=== PATIENT | female | born 1940 | race Caucasian/White ===

== ENCOUNTER 2016-08-15 12:28 | Inpatient (IN) | payer OTHER ==
[2016-08-15 12:34] VITALS: BMI 28.1
--- NOTE | 2016-08-15 12:50 | ED PDOC ---
Arrival/HPI - General Chief Complaint: Trauma Time Seen by Provider: 08/15/16 12:35 Historian: Patient - History of Present Illness Narrative History of Present Illness (Text): 08/15/16 12:47 76 year old female presents to the emergency department with left knee pain after mechanical trip and fall over uneven pavement around 12:15 today. She states she was unable to ambulate after the fall due to pain. Denies head trauma or LOC. Denies hip pain. Patient reports last tetanus 1 year ago. Time/Duration: Prior to Arrival Symptom Onset: Sudden Modifying Factors (Text): None Associated Symptoms (Text): None Past Medical History - Provider Review Nursing Documentation Reviewed: Yes - Infectious Disease Hx of Infectious Diseases: None - Tetanus Immunization Tetanus Immunization: Unknown - Reproductive Menopause: Yes - Cardiac Hx Cardiac Disorders: Yes Hx Hypertension: Yes (uncontrolled) Hx Pacemaker: No - Pulmonary Hx Respiratory Disorders: Yes Hx Pneumonia: Yes - Neurological Hx Neurological Disorder: No Hx Paralysis: No - HEENT Hx HEENT Disorder: (WEARS RX GLASSES) - Renal Hx Renal Disorder: No - Endocrine/Metabolic Hx Endocrine Disorders: Yes (GOITER) Hx Diabetes Mellitus Type 1: Yes - Hematological/Oncological Hx Blood Disorders: Yes (VIT D DEFICIENCY) Hx Anemia: Yes Hx Blood Transfusions: No Hx Blood Transfusion Reaction: No - Musculoskeletal/Rheumatological Hx Musculoskeletal Disorders: Yes Hx Arthritis: Yes (RHEUMATOID) Hx Falls: No Hx Unsteady Gait: Yes - Gastrointestinal Hx Gastrointestinal Disorders: Yes Hx Colitis: Yes Hx Diverticulitis: (diverticulosis) Hx Gastritis: Yes Hx Gastroesophageal Reflux: Yes - Genitourinary/Gynecological Hx Genitourinary Disorders: No (2 C SECTIONS) - Psychiatric Hx Depression: No Hx Emotional Abuse: No Hx Physical Abuse: No Hx Substance Use: No - Surgical History Hx Section: Yes (x2) - Anesthesia Hx Anesthesia: Yes Hx Anesthesia Reactions: No Hx Malignant Hyperthermia: No - Suicidal Assessment Feels Threatened In Home Enviroment: No Family/Social History - Physician Review Nursing Documentation Reviewed: Yes Family/Social History: Unknown Family HX Smoking Status: Never Smoked Hx Alcohol Use: No Hx Substance Use: No Hx Substance Use Treatment: No Allergies/Home Meds Allergies/Adverse Reactions: Allergies No Known Allergies Allergy (Verified 08/15/16 12:40) Home Medications: Home Meds Medication Instructions Recorded Confirmed Lisinopril/Hydrochlorothiazide 20 mg PO DAILY 05/15/13 08/15/16 [Lisinopril and Hydrochlorothiazide 25 mg-20 M] Cholecalciferol (Vitamin D3) 50,000 unit PO MON 08/15/16 08/15/16 [Vitamin D3] Folic Acid 1 mg PO DAILY 08/15/16 08/15/16 metFORMIN [glucOPHAGE] 500 mg PO BID 08/15/16 08/15/16 Review of Systems - Physician Review All systems were reviewed & negative as marked: Yes - Review of Systems Respiratory: absent: SOB Cardiovascular: absent: Chest Pain Musculoskeletal: Other (Left knee pain. No hip pain.) Neurological: absent: Headache, Dizziness Physical Exam Vital Signs Reviewed: Yes Vital Signs Temp Pulse Resp BP Pulse Ox 08/15/16 21:51 81 08/15/16 18:00 67 18 155/71 H 98 08/15/16 16:02 69 18 157/75 H 98 08/15/16 14:21 75 18 159/77 H 98 08/15/16 12:51 98.2 F 77 18 182/83 H 98 Temperature: Afebrile Blood Pressure: Hypertensive Pulse: Regular Respiratory Rate: Normal Appearance: Positive for: Well-Appearing, Non-Toxic Pain Distress: Mild Mental Status: Positive for: Alert and Oriented X 3 - Systems Exam Head: Present: Atraumatic, Normocephalic Pupils: Present: PERRL Conjunctiva: Present: Normal Mouth: Present: Moist Mucous Membranes Upper Extremity: Present: Normal Inspection. No: Cyanosis, Edema Lower Extremity: Present: Other (Left kneee: Swelling, small abrasion, mild tenderness) Neurological: Present: GCS=15, CN II-XII Intact, Speech Normal Skin: Present: Warm, Dry, Normal Color. No: Rashes Psychiatric: Present: Alert, Oriented x 3, Normal Insight, Normal Concentration Medical Decision Making ED Course and Treatment: Impression: 76 year old female presents to the emergency department with left knee pain after mechanical trip and fall over uneven pavement around 12:15 today. Differential Diagnosis included but are not limited to: Fracture vs sprain vs strain Plan: -- XR left knee -- Reassess and disposition Progress Notes: XR left knee Medical Assistant Secretary : ELIZABETH VILLALOBOS MD Report Date : 08/15/2016 14:50:12 IMPRESSION: 10 mm subarticular radiolucent lesion with sclerotic margin in the lateral femoral condyle. A dedicated CT scan or MRI of the knee without and with intravenous contrast is recommended for further characterization. Mild tricompartmental degenerative osteoarthrosis, worse in the medial compartment. Small suprapatellar joint effusion. PROCEDURE: CT left lower extremity Medical Assistant Secretary : Christopher Cook MD Report Date : 08/15/2016 16:42:32 IMPRESSION: Vertically oriented acute fracture distal femur extending to the articular surface. Associated findings including small suprapatellar effusion and adjacent soft tissue swelling. Unremarkable visualized proximal tibia, fibula. Degenerative changes noted in the patella. 08/15/16 19:[address] Mendiola who recommends knee immobilizer, non weight- bearing, and will see patient in morning. Case discussed with Dr. Garcia who accepts for admission. - Lab Interpretations Lab Results: 08/15/16 20:45 08/15/16 22:00 Lab Results 08/15/16 22:00: Sodium 141, Potassium 4.9, Chloride 103, Carbon Dioxide 27, Anion Gap 16, BUN 35 H, Creatinine 1.0, Est GFR ( Amer) > 60, Est GFR ( Non-Af Amer) 54, Random Glucose 106, Calcium 9.6, Total Bilirubin 0.6, AST 25, ALT 30, Alkaline Phosphatase 81, Total Protein 8.0, Albumin 4.3, Globulin 3.7, Albumin/Globulin Ratio 1.2 08/15/16 20:45: PT 11.1, INR 1.03, APTT 29.4 08/15/16 20:45: WBC 8.2, RBC 4.55, Hgb 12.2, Hct 37.5, MCV 82.4, MCH 26.8, MCHC 32.5, RDW 15.4 H, Plt Count 181, MPV 11.4 H, Gran % 76.9 H, Lymph % (Auto) 17.5 L, [place] % (Auto) 4.2, Eos % (Auto) 1.3 L, Baso % (Auto) 0.1, Gran # 6.33, Lymph # 1.4, [place] # 0.4, Eos # 0.1, Baso # 0.01 - RAD Interpretation Radiology Orders: 08/15/16 12:44 KNEE WITH PATELLA LEFT 3 VIEW [RAD] Stat 08/15/16 14:16 KNEE WITHOUT CONTRAST LEFT [CT] Stat 08/15/16 21:21 CHEST PORTABLE [RAD] Stat - Medication Orders Current Medication Orders: Ergocalciferol (Drisdol 50,000 Intl Units Cap) 1 cap PO MON [facility] Last Admin: 08/15/16 22:19 Dose: 1 cap Folic Acid (Folic Acid) 1 mg PO DAILY [facility] Last Admin: 08/18/16 09:35 Dose: 1 mg Heparin Sodium (Porcine) (Heparin) 5,000 units SC Q8 [facility] PRN Reason: Protocol Last Admin: 08/18/16 05:43 Dose: 5,000 units Hydromorphone HCl (Dilaudid) 0.5 mg IVP Q4H PRN PRN Reason: Pain, moderate (4-7) Last Admin: 08/17/16 22:06 Dose: 0.5 mg Sodium Chloride (Sodium Chloride 0.45%) 1,000 mls @ 60 mls/hr IV .[id number] [facility] Last Admin: 08/17/16 11:42 Dose: 60 mls/hr Insulin Human Lispro (Humalog Med) 0 units SC AC [facility] PRN Reason: Protocol Last Admin: 08/18/16 09:35 Dose: Not Given Non-Admin Reason: Blood Sugar Parameter Losartan Potassium (Cozaar) 100 mg PO DAILY [facility] Last Admin: 08/18/16 09:35 Dose: 100 mg Ondansetron HCl (Zofran Inj) 4 mg IVP Q4H PRN PRN Reason: Nausea/Vomiting Last Admin: 08/17/16 22:06 Dose: 4 mg Pantoprazole Sodium (Protonix Ec Tab) 20 mg PO 0730,1630 [facility] Last Admin: 08/18/16 09:35 Dose: 20 mg Polyethylene Glycol (Miralax) 17 gm PO BID [facility] Last Admin: 08/18/16 09:36 Dose: 17 gm Discontinued Medications Heparin Sodium (Porcine) (Heparin) 5,000 units SC Q8H [facility] PRN Reason: Protocol Last Admin: 08/15/16 21:50 Dose: 5,000 units Losartan Potassium (Cozaar) 50 mg PO STAT STA Stop: 08/15/16 21:22 Last Admin: 08/15/16 21:51 Dose: 50 mg Losartan Potassium (Cozaar) 50 mg PO DAILY [facility] Last Admin: 08/17/16 10:32 Dose: Metoprolol Tartrate (Lopressor) 25 mg PO STAT STA Stop: 08/15/16 21:22 Last Admin: 08/15/16 21:51 Dose: 25 mg Naproxen (Anaprox Ds) 550 mg PO STAT STA Stop: 08/15/16 12:57 Last Admin: 08/15/16 13:25 Dose: 550 mg - Scribe Statement The provider has reviewed the documentation as recorded by the Yaya Armstrong Provider Scribe Attestation: All medical record entries made by the Yaya were at my direction and personally dictated by me. I have reviewed the chart and agree that the record accurately reflects my personal performance of the history, physical exam, medical decision making, and the department course for this patient. I have also personally directed, reviewed, and agree with the discharge instructions and disposition. Disposition/Present on Arrival - Present on Arrival Any Indicators Present on Arrival: No History of DVT/PE: No History of Uncontrolled Diabetes: No Urinary Catheter: No History of Decub. Ulcer: No History Surgical Site Infection Following: None - Disposition Have Diagnosis and Disposition been Completed?: No Diagnosis: Femur fracture Disposition: HOSPITALIZED Disposition Time: 07:00 Condition: GOOD
[2016-08-15] MEDS ORDERED: Naproxen 550 mg Tab PO STA (12:56)
--- NOTE | 2016-08-15 14:52 | RAD ---
PROCEDURE: Left Knee Radiographs. HISTORY: Pain. COMPARISON: None. FINDINGS: BONES: There is an apparent 10 mm subarticular radiolucent lesion with sclerotic margin in the apophysis of the lateral femoral condyles. There is no acute fracture. There is mild periarticular bone demineralization. JOINTS: Mild tricompartmental degenerative osteoarthrosis, worse in the medial compartment. JOINT EFFUSION: Small suprapatellar joint effusion. OTHER FINDINGS: None. IMPRESSION: 10 mm subarticular radiolucent lesion with sclerotic margin in the lateral femoral condyle. A dedicated CT scan or MRI of the knee without and with intravenous contrast is recommended for further characterization. Mild tricompartmental degenerative osteoarthrosis, worse in the medial compartment. Small suprapatellar joint effusion.
--- NOTE | 2016-08-15 16:44 | CT ---
PROCEDURE: CT left lower extremity HISTORY: fall COMPARISON: August 15, 2016. TECHNIQUE: 2.5 mm axial acquisition and display. Coronal and sagittal reconstructions. Dose report (mGy-cm): 195.91 FINDINGS: Vertically oriented fracture through the distal femur which extends to the articular surface, lateral femoral condyles. The fracture is nondisplaced. There is an associated joint effusion. Soft tissue swelling attests to the acuity of the fracture. IMPRESSION: Vertically oriented acute fracture distal femur extending to the articular surface. Associated findings including small suprapatellar effusion and adjacent soft tissue swelling. Unremarkable visualized proximal tibia, fibula. Degenerative changes noted in the patella.
[2016-08-15 21:06] LABS: ADD MANUAL DIFF? NO
[2016-08-15 21:10] LABS: BASO # 0.01 K/mm3 (0.0-2.0); BASO % 0.1 % (0.0-3.0); EOS # 0.1 (0.0-0.7); EOS % 1.3 % (1.5-5.0); GRAN # 6.33 (1.4-6.5); GRAN % 76.9 % (50.0-68.0); HEMATOCRIT 37.5 % (36.0-48.0); LYMPH # 1.4 (1.2-3.4); LYMPH % 17.5 % (22.0-35.0); MEAN CELL VOLUME 82.4 fL (80.0-105.0); MEAN CORPUSCULAR HEMOGLOBIN 26.8 pg (25.0-35.0); MEAN CORPUSCULAR HGB CONC 32.5 g/dl (31.0-37.0); MEAN PLATELET VOLUME 11.4 fl (7.0-11.0); MONO # 0.4 (0.1-0.6); MONO % 4.2 % (1.0-6.0); PLATELET COUNT 181 10^3/uL (120.0-450.0); RED CELL DISTRIBUTION WIDTH 15.4 % (11.5-14.5); WHITE BLOOD COUNT 8.2 10^3/ul (4.5-11.0)
[2016-08-15 21:22] LABS: INR 1.03 (0.93-1.08); PARTIAL THROMBOPLASTIN TIME 29.4 Seconds (23.7-30.8)
[2016-08-15] MEDS ORDERED: Ergocalciferol 50,000 Intl Units Cap PO SCH (22:00)
[2016-08-15 22:16] LABS: ALB/GLOB RATIO 1.2 (1.1-1.8); ALKALINE PHOSPHATASE 81 U/L (38-133); ALT/SGPT 30 U/L (7-56); AST/SGOT 25 U/L (15-39); BILIRUBIN,TOTAL 0.6 mg/dL (0.2-1.3); BLOOD UREA NITROGEN 35 mg/dL (7-21); CALCIUM 9.6 mg/dL (8.4-10.5); CARBON DIOXIDE 27 mmol/L (21-33); CHLORIDE 103 mmol/L (98-107); GFR AFRICAN-AMERICAN > 60; GLUCOSE,RANDOM 106 mg/dL (70-110); POTASSIUM 4.9 mmol/L (3.6-5.0); SODIUM 141 mmol/L (132-148)
[2016-08-15] MEDS: HYDROmorphone 0.5 mg/0.5 ml ISec IVP PRN (22:16)
[2016-08-15] MEDS: Sodium Chloride 0.45% 1,000 ML IV SCH (22:27)
--- NOTE | 2016-08-15 23:09 | HP ---
HISTORY OF PRESENT ILLNESS: The patient is a 76-year-old [place] female of origin who cam e to the Emergency Room by [facility] ambulance as the patient and the patient's family state that tangela euceda tripped and fell down the sidewalk and injured her left knee and developed pain and difficulty walk ing. According to the triage note, the patient presented with above. According to the ER physician evaluation, the patient developed left knee pain after having a mechanical fall. The patient states that she fell on the uneven pavement and sidewalk. The patient, after falling, was unable to walk du e to the pain. The patient denies loss of consciousness, denies syncope. REVIEW OF SYSTEMS: A 13-system review was done. Pertinent positive and negative dictated above. CODE STATUS: Full code. LIVING WILL AND ADVANCED DIRECTIVE: None. HEIGHT: 5 feet WEIGHT: 144. BMI is 28.1. SOCIAL HISTORY: Negative for smoking, negative for substance abuse, negative for alcohol, negative f or communicable or transmissible disease. MENSTRUAL HISTORY: Postmenopausal. OCCUPATIONAL HISTORY: Housewife. PAST MEDICAL AND SURGICAL HISTORY: History of obesity, history of poor compliance, history of hypert ension, history of vitamin B12 deficiency, history of type 2 diabetes mellitus, history of hypertensi on, history of chronic kidney disease, history of hypovitaminosis D, history of iron deficiency anemi a, history of hypertension, history of hyperkalemia secondary to ERENDIRA , history of normocytic ane venkatesh, history of microcytic anemia, history of iron deficiency anemia, history of diabetes mellitus, h istory of hyperkalemia, history of proteinuria, microscopic hematuria, history of questionable rheuma toid arthritis, under the care of supervisor clam bed. The patient's past medical history is significant for multinodular thyroid gland with multiple thyroid nodules. The patient's past medical history is also significant for osteoporosis. The patient's past medical history is significant for history of questionable fatty liver, history of type 2 diabetes mellitus, history of fatty liver, history of hep atic steatosis, history of renal cyst. The patient's past medical history is also significant for hi story of diverticulosis, history of ultrasound-guided right thyroid nodule biopsy, history of thyrome mami with multiple thyroid nodules, history of diverticulosis, history of degenerative joint disease of the right shoulder acromioclavicular joint, history of thyromegaly, history of thyroid multinodula r goiter. The patient's past medical history is significant for history of thyroid nodule biopsy destiny wing follicular epithelial cells, hemosiderin laden macrophage, with nodular goiter. The patient's p ast medical history significant for hypertension with history of hypertension. The patient's past me dical history is significant for history of hypertension, history of dyslipidemia, history of hypovit aminosis D, history of hypomagnesemia. The patient's past medical history is significant for diverti culosis with diverticulitis and microperforation. The patient's past medical history is significant for acute sigmoid colitis versus diverticulitis and microperforation with inflammatory changes around the left lower quadrant with small focus of extraluminal air with acute colitis, history of left jl gular calcified granuloma, history of hypertension, history of coronary and aortic valvular calcifica tion, history of hepatic steatosis, history of diffuse diverticulosis, history of demineralization of the vertebral bone, history of sigmoid colitis, history of normocytic anemia, history of noninsulin- requiring diabetes mellitus, history of acute colitis of unclear etiology. The patient's past medica l history significant for history of rheumatoid arthritis, history of hypertension, history of degene rative joint disease, history of noninsulin-requiring diabetes mellitus, history of hypovitaminosis D , history of hypomagnesemia, history of iron deficiency anemia, status post IV for treatment, h istory of ethmoid and frontal sinusitis, history of bilateral 20-39% proximal internal carotid artery stenosis, history of multinodular thyroid goiter, history of chronic microvascular ischemic disease of the brain, history of gastritis, history of gastroesophageal reflux, history of diabetes mellitus. FAMILY HISTORY: Positive for diabetes, hypertension. The patient's past medical history is also sig nificant for thyroid nodule biopsy. PHYSICAL EXAMINATION: GENERAL: The patient is seen in stretcher #15 in the Emergency Room. The patient's family is at bed side. VITAL SIGNS: T-max is 98.2, heart rate 67-81, blood pressure 182/83, 159/77, 155/71, respirations 18 , O2 sat 98%. HEAD: Normocephalic, atraumatic. HEENT: Shows pink conjunctivae, pinkish, pale conjunctivae, Anicteric sclerae. Dry oral mucosa. Qu estionable soft carotid bruit. CHEST: Kyphosis. LUNGS: Shows no rales, crackles, or wheezing. CARDIOVASCULAR: Shows S1, S2, regular rhythm. ABDOMEN: Protuberant, positive bowel sounds. GENITALIA: Female. RECTAL: Deferred. EXTREMITIES: Shows positive left knee immobilizer. Decreased range of motion of the left lower extr emity. No costovertebral angle tenderness. GENITALIA: Female. VASCULAR: Palpable pulses. NEUROLOGIC: Cranial nerves II-XII limited. Gait examinations could not be tested. Positive left lo wer extremity weakness. The patient is able to move upper extremities without assistance. The patie nt is able to move right lower extremity without assistance. MUSCULOSKELETAL: Shows a body mass index of 28. PSYCHIATRIC: Not applicable. DIAGNOSTICS: CBC is available at present. Chemistry and other labs unavailable. WBC 8.2, hemoglobi n and hematocrit 12.2 and 37.5, platelet 181, granulocytes 77%. PT, PTT is normal. The patient had a knee x-ray done initially by the ER physician, which was inconclusive. The patient ended up having a CAT scan of the knee, which shows distal femur acute vertically oriented fracture extending to the articular surface with suprapatellar effusion and soft tissue swelling and degenerative joint diseas e of the patella noted. IMPRESSION AND PLAN: 1. Status post mechanical fall. 2. Left distal femur vertically oriented fracture through the distal femur extending into the articu lar surface, lateral femoral condyles and nondisplaced fracture with left knee joint effusion and deg enerative joint disease of the patella. 3. Gait dysfunction. 4. Status post mechanical fall. 5. Degenerative joint disease of the knee. 6. Suprapatellar joint effusion. 7. Obesity. 8. Hypertension. 9. Type 2 diabetes mellitus. 10. History of iron deficiency normocytic anemia. 11. Granulocytosis. 12. History of dyslipidemia, history of hypovitaminosis D, history of vitamin B12 deficiency, histor y of hyperkalemia secondary to ERENDIRA and , history of chronic kidney disease, history of possible rheumatoid arthritis, history of degenerative joint disease of the spine and knees, history of osteop orosis, history of multinodular thyroid with multiple thyroid nodules, history of gait dysfunction. PLAN: At this time, the patient is awaiting further diagnostic labs. The patient was seen in the Em ergency Room by Dr. Carlton, who contacted orthopedics human performance consultant, Dr. Sina Castillo. According to the ER physician, orthopedics recommended knee immobilizer, nonweightbearing and patient is to be seen by or thopedics in the morning. The patient is to be admitted to [facility]. The patient has been requested for cardiology clearance for possible surgical orthopedic intervention if needed. The patient is started on IV fluid 0.45 at 60 mL an hour. The patient is started on Cozaar 50 mg daily, Dilaudid 0.5 mg IV q. 4 p.r.n., Drisdol 50,000 weekly, folic acid 1 mg daily, DVT prophylaxis with h eparin 5000 subQ q. 8 has been ordered, Humalog medium dose sliding scale coverage ordered, Lopressor 25 q. 12 ordered, Protonix 20 twice a day, Zofran 4 IV q. 4 p.r.n. been ordered. Chest x-ray PA and lateral, EKG ordered. The patient's chemistry is pending. The patient was ordered consistent carbo hydrate diet, bed rest has been ordered. Head of the bed at 30 degrees ordered, spirometry ordered. At present, patient was seen in the Emergency Room. The patient's condition, diagnosis, need for ho spitalization was extensively explained to the patient and the patient's family who was present at th e bedside. All questions and concerns answered to their satisfaction. At present, the patient's further management will be dependent upon the patient's clinical condition, hemodynamic status, and as per patient's response to therapeutic intervention, as per patient's diag nostic test results and as per recommendation by cardiology, orthopedic. At present, patient is at l east moderate risk for surgical intervention by orthopedics if needed. Dictated and electronically signed, not read. Lamont Garcia MD cc: [id number] TT: 08/15/2016 23:09:33 whitney
[2016-08-16] MEDS: HYDROmorphone 0.5 mg/0.5 ml ISec IVP PRN ×4 (06:43→21:24)
[2016-08-16] MEDS: Pantoprazole 20 mg EC Tab PO SCH ×2 (06:43→20:30)
[2016-08-16] MEDS: Insulin Lispro (humaLOG) MEDIUM Coverage SC SCH ×3 (07:56→18:26)
--- NOTE | 2016-08-16 08:33 | RAD ---
HISTORY: PRE OP COMPARISON: 01/29/2013 FINDINGS: LUNGS: No active pulmonary disease. PLEURA: No significant pleural effusion identified, no pneumothorax apparent. CARDIOVASCULAR: Normal. OSSEOUS STRUCTURES: No significant abnormalities. VISUALIZED UPPER ABDOMEN: Normal. OTHER FINDINGS: None. IMPRESSION: No active disease.
[2016-08-16 09:47] VITALS: RESP 20
--- NOTE | 2016-08-16 10:06 | CARD ---
APPROVED REPORT EKG Measurement Heart [id number] <Conclusion> Marked sinus bradycardia with sinus arrhythmia, new
--- NOTE | 2016-08-16 13:49 | CON ---
DATE: 08/16/2016 HISTORY OF PRESENT ILLNESS: The patient is a 76-year-old woman who is status post fall with fracture of the left distal femur. PAST MEDICAL HISTORY: Presyncopal episode. She denies loss of consciousness. She suffers from hypertension and diabetes mellitus, but no previous cardiac history. Negative shortness of breath, negative angina. SOCIAL HISTORY: The patient does not smoke. REVIEW OF SYSTEMS: A 14-point review of systems was reviewed in detail. No cardiac symptomatology i s noted. PHYSICAL EXAMINATION: VITAL SIGNS: Blood pressure 155/57, heart rate in the 60s, normal sinus rhythm. NECK: Negative JVD. LUNGS: Without rales. HEART: Reveals S1, S2. EXTREMITIES: Without edema. EKG shows sinus bradycardia with no acute changes. LABORATORY DATA: Hemoglobin is 12.2. Glucose is 121, BUN and creatinine 35 and 1.0. Troponin is ne gative x 1. IMPRESSION: 1. Fracture of the left distal femur. 2. Diabetes mellitus. 3. Hypertension. 4. Near syncope, but no loss of consciousness, likely due to mechanical fall. 5. Sinus bradycardia. Given these findings, there are no hemodynamic consequences of the patient's decreased heart rate, wh ich is likely vagal in nature due to her pain. There are no cardiac contraindications for planned orthopedic surgery on her left knee. Alexandre Montano MD cc: [id number] TT: 08/16/2016 13:49:22 Confirmation # [id number] Dictation # [id number]
[2016-08-16] MEDS: Sodium Chloride 0.45% 1,000 ML IV SCH (15:17)
--- NOTE | 2016-08-16 19:15 | PN ---
DATE: 08/16/2016 SUBJECTIVE: The patient is seen in room 574, bed 1. The patient is seen lying in the bed. The patient is in the bed with the left leg knee immobilizer. The patient is complaining of some knee pain. The patient has requested p.r.n. Dilaudid times 1 or 2 doses. PHYSICAL EXAMINATION: VITAL SIGNS: T-max 97.8, pulse 63-67, blood pressure 139/70, 155/57, 112/74, 155/71, 157/75, respirations 20, O2 sat 95%-98%. HEAD: Normocephalic, atraumatic. HEENT: Shows pink conjunctivae. Dry oral mucosa. NECK: No neck rigidity. CHEST: Kyphosis. LUNGS: Shows no rales, crackles, or wheezing. CARDIOVASCULAR: S1, S2, regular rhythm. ABDOMEN: Soft, protuberant, positive bowel sounds. GENITALIA: Female. RECTAL: Deferred. EXTREMITIES: Shows positive left knee immobilizer, decreased range of motion of the left lower extremity. Right lower extremity is intact. The patient is able to move upper extremity without assistance. MUSCULOSKELETAL: Shows a body mass index of 28. PSYCHIATRIC: Not applicable. GAIT: Could not be tested. DIAGNOSTICS: WBC 8.2, hemoglobin and hematocrit 12.2 and 37.5, platelets 181, granulocytes 77. PT, PTT is normal. Sodium 141, potassium 4.1, chloride 103, CO2 27, anion gap 16, BUN 35, creatinine 1.0. GFR greater than 60. Fingerstick blood sugar 121, 160. LFTs are normal. Chest x-ray report was reviewed, which was negative. EKG was reviewed, which shows severe bradycardia with sinus arrhythmia. The patient's previous EKG from 04/11/2016 was reviewed, but did not have bradycardia. The patient's previous EKG from 02/2015 was reviewed, which shows sinus rhythm with sinus arrhythmia. The patient's EKG from 03/2012 was reviewed, which has sinus rhythm with sinus arrhythmia. The patient was seen by bobbin fixer. IMPRESSION AND PLAN: 1. Status post mechanical fall. 2. Left distal femur vertically oriented fracture through the distal femur extending into the articular surface lateral femoral condyle and nondisplaced fracture of the left knee with left knee joint effusion and degenerative joint disease of the patella. 3. Gait dysfunction. 4. Degenerative joint disease of the knee. 5. Left suprapatellar joint effusion. 6. Obesity. 7. Hypertension. 8. Marked sinus bradycardia with sinus arrhythmia. 9. Status post fall. 10. Noninsulin requiring type 2 diabetes mellitus. 11. Vitamin B12 deficiency. 12. Gait dysfunction. 13. Hypertension. 14. Hypovitaminosis D. 15. Noninsulin requiring type 2 diabetes mellitus. 1. Status post mechanical fall. 2. Left distal femur vertically oriented fracture through the distal femur extending into the articular surface, lateral femoral condyles and nondisplaced fracture with left knee joint effusion and degenerative joint disease of the patella. 3. Gait dysfunction. 4. Status post mechanical fall. 5. Degenerative joint disease of the knee. 6. Suprapatellar joint effusion. 7. Obesity. 8. Hypertension. 9. Type 2 diabetes mellitus. 10. History of iron deficiency normocytic anemia. 11. Granulocytosis. 12. 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 PLAN: At this time, patient seen by cardiology, we are still awaiting for orthopedic evaluation and recommendation. CURRENT MEDICATIONS: 1. IV fluid half normal saline at 60 mL an hour. 2. Cozaar 50 mg daily. 3. Dilaudid 0.5 mg IV q. 4 p.r.n. 4. Drisdol 50,000 weekly. 5. Folic acid 1 mg daily. 6. Heparin 5000 subQ q. 8. 7. Humalog medium dose sliding scale coverage. 8. The patient's Lopressor has been discontinued because of bradycardia. 9. Protonix 20 mg twice a day. 10. Zofran 4 mg IV q. 4 p.r.n. The patient has been ordered ERIC stockings and SCDs to the right lower extremity. The patient evaluated by physical therapy. We are awaiting for further evaluation by orthopedics. The patient's further management will be dependent upon the patient's clinical condition, hemodynamic status, and as per patient's response to therapeutic intervention, as per recommendation by orthopedics. The patient has been updated about her condition, diagnosis, test results and recommendation. The patient was told and explained that the further management will be dependent upon the orthopedic recommendations. Dictated and electronically signed, not read. Lamont Garcia MD cc: [id number] TT: 08/16/2016 19:15:30 Confirmation # [id number] Dictation # [id number] dell BOONE
[2016-08-17] MEDS: Insulin Lispro (humaLOG) MEDIUM Coverage SC SCH ×3 (08:35→17:29)
[2016-08-17] MEDS: Pantoprazole 20 mg EC Tab PO SCH ×2 (10:35→17:36)
--- NOTE | 2016-08-17 10:42 | PN ---
DATE: 08/15/2016 CARDIOLOGY FOLLOWUP The patient is in bed with an immobilizer on her left knee. PHYSICAL EXAMINATION: VITAL SIGNS: Blood pressure is 167/65. The heart rate is in the 70s. NECK: Negative JVD. LUNGS: Without rales. HEART: Revealed S1, S2. EXTREMITIES: Without edema. LABORATORIES: Includes a glucose of 133. IMPRESSION: 1. Status post fall with fracture of the left knee. 2. Diabetes mellitus. 3. Hypertension. 4. Sinus bradycardia. PLAN: Given these findings, there is apparently no need for surgery, as per ortho. No further cardi ac workup at this time. From a cardiac perspective, the patient would benefit from a stress test to rule out CAD once her left knee has healed. Alexandre Montano MD cc: [id number] TT: 08/17/2016 09:50:24 Confirmation # [id number] Dictation # [id number] matthew
--- NOTE | 2016-08-17 11:27 | CON ---
DATE: 08/16/2016 REASON FOR CONSULTATION: Left distal femur fracture. HISTORY OF PRESENT ILLNESS: A 76-year-old female with multiple medical comorbidities, tripped over a sidewalk on the street, landing on her left knee. The patient had immediate pain and swelling of th e knee with difficulty ambulating. She was brought to the Emergency Room, underwent x-rays, followed by CT scan which was positive for a distal femur fracture. I was consulted for further recommendati ons. The patient is a community ambulator. PHYSICAL EXAMINATION: Bilateral hips: No tenderness over the hip area, negative logroll, negative h eel strike. Right knee: Full range of motion 0-90 degrees, no instability, no swelling, full muscle strength of quadriceps and hamstrings. Right ankle: Full range of motion, also no instability or p ain over the ankle area. Left knee: The skin is intact. There is mild to moderate swelling of the k nee with tenderness to palpation over the thigh area. Compartments are soft. The patient has diffic ulty straight leg raising due to pain. No palpable gaps. Left ankle: Full range of motion. No ins tability or pain. X-rays of the left knee were seen and reviewed, show well-aligned knee joint. There is a nondisplace d fracture over the distal femur. CT scan of the left knee was also seen and reviewed, show a nondisplaced condyle fracture of the dist al femur. The condyles are well congruent. The joint is well reduced. There is no step-off. There is intraarticular extension of the fracture. ASSESSMENT: Left distal femur nondisplaced vertical fracture. PLAN: I have discussed the above findings to the patient. We discussed both surgical and nonsurgica l treatment options. Due to the nature of the fracture, I recommended nonoperative treatment. Treat ment includes nonweightbearing and continued knee immobilizer. I will see the patient back in 2-3 we eks in my office for further evaluation and new x-rays. The patient understood the above treatment a nd risks and benefits of each option, and elected to proceed with conservative management. Jonathan Andino M.D. cc: [id number] TT: 08/17/2016 11:27:37 Confirmation # [id number] Dictation # [id number] mn
[2016-08-17] MEDS: HYDROmorphone 0.5 mg/0.5 ml ISec IVP PRN ×2 (11:42→22:06)
[2016-08-17] MEDS: Sodium Chloride 0.45% 1,000 ML IV SCH (11:42)
--- NOTE | 2016-08-17 12:18 | PN ---
DATE: 08/17/2016 The patient is seen in room 574, bed 1. The patient is seen lying in the bed. The patient has been having some intermittent left knee pain for which patient has been taking Dilaudid. The patient's overnight nurse's notes were reviewed. The patient stayed in bed mostly. PHYSICAL EXAMINATION: VITAL SIGNS: T-max 98.5, heart rate 63-86, blood pressure 155/57, 139/70, 167/ 65, respirations 20, O2 sat 95%-97%. HEAD: Normocephalic, atraumatic. HEENT: Shows pinkish, pale conjunctivae, anicteric sclerae. No oropharyngeal lesion. NECK: No neck rigidity. CHEST: Kyphosis. LUNGS: Shows no rales, crackles, or wheezing. CARDIOVASCULAR: S1, S2. Regular rhythm. ABDOMEN: Protuberant, positive bowel sounds. GENITALIA: Female. RECTAL: Deferred. EXTREMITIES: Show positive left knee immobilizer. VASCULAR: Palpable pulses upper extremity and right lower extremity. Motor strength is 5/5. GAIT: Could not be tested as patient is lying in the bed with left knee immobilizer. NEUROLOGIC: The patient is alert, awake, oriented x 3. MUSCULOSKELETAL: Shows a body mass index of 28.1. DIAGNOSTICS: Fingerstick blood sugar 133, 169, 122, 160, 121. The patient seen by orthopedics, Dr. Castillo. His impression is that the patient has a left distal femoral nondisplaced vertical fracture. The findings and treatment plan was discussed with the patient including both surgical and nonsurgical treatment options, and due to the nature of the fracture, orthopedic recommended nonoperative treatment including nonweightbearing and continued knee immobilizer. The patient was advised by orthopedics to be seen back in the office in 2-3 weeks for further evaluation and new x-ray. Above explanation by the orthopedics was well understood by the patient and the and the patient accepted nonoperative treatment at present. DIAGNOSTIC DATA: None. IMPRESSION: 1. 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 2. Status post mechanical fall. 3. Obesity. 4. Hypertension. 5. Obesity. 6. Gait dysfunction. 7. Noninsulin requiring diabetes mellitus. 8. Mild prerenal kidney injury. 9. Gait dysfunction. 10. Asymptomatic sinus bradycardia with sinus arrhythmia. 11. Left distal femur acute nondisplaced vertical fracture. 12. Sinus bradycardia. 13. Hypertension. 14. Hypovitaminosis D. 15. Constipation. 1. Status post mechanical fall. 2. Left distal femur vertically oriented fracture through the distal femur extending into the articular surface lateral femoral condyle and nondisplaced fracture of the left knee with left knee joint effusion and degenerative joint disease of the patella. 3. Gait dysfunction. 4. Degenerative joint disease of the knee. 5. Left suprapatellar joint effusion. 6. Obesity. 7. Hypertension. 8. Marked sinus bradycardia with sinus arrhythmia. 9. Status post fall. 10. Noninsulin requiring type 2 diabetes mellitus. 11. Vitamin B12 deficiency. 12. Gait dysfunction. 13. Hypertension. 14. Hypovitaminosis D. 15. Noninsulin requiring type 2 diabetes mellitus. 1. Status post mechanical fall. 2. Left distal femur vertically oriented fracture through the distal femur extending into the articular surface, lateral femoral condyles and nondisplaced fracture with left knee joint effusion and degenerative joint disease of the patella. 3. Gait dysfunction. 4. Status post mechanical fall. 5. Degenerative joint disease of the knee. 6. Suprapatellar joint effusion. 7. Obesity. 8. Hypertension. 9. Type 2 diabetes mellitus. 10. History of iron deficiency normocytic anemia. 11. Granulocytosis. 12. 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 PLAN: At this time, the patient seen by case management. The patient's discharge plan at this time is acute rehab versus subacute rehabilitation. The patient has been medically cleared by cardiology. Cardiology recommendations are elective stress test after the healing of the left femur fracture. CURRENT MEDICATIONS: 1. IV fluid half normal saline at 60 mL an hour. 2. Cozaar 50 mg daily. 3. Dilaudid 0.5 mg IV q. 4 p.r.n. 4. Drisdol 50,000 weekly. 5. Folic acid 1 mg daily. 6. Heparin 5000 subQ q. 8. 7. Humalog medium dose sliding scale coverage a.c. meals. 8. MiraLax started at 17 g twice a day. 9. Protonix 20 mg twice a day. 10. Zofran 4 mg IV q. 4 p.r.n. Repeat EKG was ordered yesterday to monitor bradycardia. Still not done. We will reorder it today. The patient has been ordered an echo with Doppler. Consistent carbohydrate diet, ERIC stockings, SCDs has been ordered. The patient 's blood pressure has been slightly elevated during the last 24 hours. The patient's Cozaar will be increased to 100 mg daily from 50 mg, At present, the patient has been ordered out of bed to chair with nonweightbearing. The patient has been ordered occupational therapy and physical therapy with left leg nonweightbearing. The patient's discharge planning as per case management, acute versus subacute rehabilitation. The patient has been updated about the recommendation from cardiology and orthopedics, which she acknowledged and understands. All questions and concerns answered. Dictated and electronically signed, not read. Lamont Garcia MD cc: [id number] TT: 08/17/2016 12:17:36 Confirmation # [id number] Dictation # [id number] dell BOONE
[2016-08-17] MEDS: POLYETHYLENE GLYCOL 3350 17 GM/Dose PACKET PO SCH ×2 (12:45→17:36)
[2016-08-18] MEDS: Insulin Lispro (humaLOG) MEDIUM Coverage SC SCH ×3 (09:35→16:35)
[2016-08-18] MEDS: Pantoprazole 20 mg EC Tab PO SCH ×2 (09:35→17:31)
[2016-08-18] MEDS: POLYETHYLENE GLYCOL 3350 17 GM/Dose PACKET PO SCH ×2 (09:36→17:31)
--- NOTE | 2016-08-18 10:17 | CARD ---
APPROVED REPORT EKG Measurement Heart [id number] MI [id number] [id number] <Conclusion> Sinus bradycardia with sinus arrhythmia No change except rate faster
--- NOTE | 2016-08-18 14:21 | PN ---
DATE: 08/18/2016 The patient is asymptomatic. PHYSICAL EXAMINATION: VITAL SIGNS: Blood pressure varies from 157 to 175, heart rate currently is in the 60s and 70s, norm al sinus rhythm. NECK: Negative JVD. LUNGS: Without rales. HEART: Reveals S1, S2. EXTREMITIES: Bandage on the left knee. LABORATORY DATA: The echocardiogram preliminary results reveal normal LV function. IMPRESSION: 1. Status post left knee injury from fall. 2. Hypertension. 3. Asymptomatic sinus bradycardia, which is better. 4. Hypertension. PLAN: Given these findings, we will add hydrochlorothiazide to her regimen for better support. Will discontinue IV fluids. From a cardiac perspective, no further cardiac workup is indicated at this t [facility]. We will arrange for an outpatient stress test once her knee injury has resolved. Alexandre Montano MD cc: [facility] TT: 08/18/2016 14:20:41 Confirmation # [id number] Dictation # [id number] dell
--- NOTE | 2016-08-18 14:23 | CARD ---
APPROVED REPORT EXAM: Two-dimensional and M-mode echocardiogram with Doppler and color Doppler. INDICATION Hypertension/HCVD 2D DIMENSIONS Left Atrium (2D)3.8 (1.6-4.0cm)IVSd1.2 (0.7-1.1cm) Aortic Root (2D)2.7 (2.0-3.7cm)LVDd3.4 (3.9-5.9cm) LVOT Diameter1.6 (1.8-2.4cm)PWd1.2 (0.7-1.1cm) LVDs2.3 (2.5-4.0cm)FS (%) 31.6 % LVEF (%)60.7 (>50%) M-Mode DIMENSIONS Aortic Cusp Exc.1.20 (1.5-2.0cm) Aortic Valve AoV Peak Ufycdsaj141.0cm/sAoV VTI45.5cmAO Peak GR.16mmHg LVOT Peak Qbrvctil333.0cm/sLVOT VTI26.10cmAO Mean GR.10mmHg FLORIDALMA (VMAX)1.79gs0MIM (VTI)1.35nx3SG P 1/2 Bpxb213ox Mitral Valve MV E Kvvxmhlo95.9cm/sMV A Xhrltfwu809.0cm/sE/A ratio0.8 TDI Lateral E' Peak V5.17cm/sMedial E' Peak V6.34cm/sE/Lateral E'17.8 E/Medial E'14.5 Pulmonary Valve PV Peak Fqnogknm24.7cm/sPV Peak Grad.4mmHg Tricuspid Valve TR Peak Mkriunkx993im/sRAP CAHEIYHI8itRyYJ Peak Gr.25mmHg TDIQ19esBq LEFT VENTRICLE The left ventricle is normal size. There is mild concentric left ventricular hypertrophy. The left ventricular function is normal. The left ventricular ejection fraction is within the normal range. There is normal LV segmental wall motion. Transmitral Doppler flow pattern is Grade I-abnormal relaxation pattern. RIGHT VENTRICLE The right ventricle is normal size. There is normal right ventricular wall thickness. The right ventricular systolic function is normal. ATRIA The left atrium is borderline dilated. The right atrium size is normal. AORTIC VALVE The aortic valve is moderately sclerotic. There is trace aortic regurgitation. There is mild valvular aortic stenosis. MITRAL VALVE The mitral valve is moderately thickened. There is no mitral valve regurgitation noted. There is no mitral valve stenosis. TRICUSPID VALVE The tricuspid valve is normal in structure. There is no tricuspid valve regurgitation noted. GREAT VESSELS The aortic root displays moderate sclerocalcific changes of the aortic root. PERICARDIAL EFFUSION There is a trace loculated anterior pericardial effusion. <Conclusion> The left ventricle is normal size. There is mild concentric left ventricular hypertrophy. The left ventricular function is normal. The left ventricular ejection fraction is within the normal range. There is normal LV segmental wall motion. Transmitral Doppler flow pattern is Grade I-abnormal relaxation pattern. There is mild valvular aortic stenosis. There is trace aortic regurgitation.
--- NOTE | 2016-08-18 21:57 | PN ---
DATE: 08/18/2016 The patient is seen lying in bed in room 574, bed 1. The patient was seen with the nurse practitioner. The patient is lying comfortably. The patient is complaining of constipation. PHYSICAL EXAMINATION: VITAL SIGNS: T-max 98.5, pulse 76-81, blood pressure 167/85, 175/86, 157/70, 167/85, respirations 20, O2 sat 95%. HEAD: Normocephalic, atraumatic. HEENT: Shows pink conjunctivae, anicteric sclerae. No oropharyngeal lesion. NECK: No neck rigidity. CHEST: Kyphosis. LUNGS: Shows no rales, crackles, or wheezing. ABDOMEN: Protuberant, positive bowel sounds. GENITALIA: Female. EXTREMITIES: Shows positive left knee immobilizer. The patient is able to wiggle her left foot. NEUROLOGIC: The patient is able to move upper extremity and right lower extremity. DIAGNOSTIC DATA: None. Fingerstick blood sugar 146, 119, 112, 165, 153, 133. The patient has been seen by physical therapist. The patient has been seen by the social sciences lecturer and case management. The patient seen by physical therapist. The patient was evaluated, their recommendation by physical therapy, was subacute rehabilitation. The patient's echocardiogram and repeat EKG was noted. The patient's repeat EKG from yesterday, still shows sinus bradycardia. The patient is asymptomatic. The patient's echocardiogram ordered, results were noted. IMPRESSION AND PLAN: 1. Left distal femur vertically oriented acute fracture to the articular surface with a small suprapatellar effusion and adjacent soft tissue swelling with degenerative joint disease of the left patellar. 2. Constipation. 3. Status post mechanical fall. 4. Obesity. 5. Hypertension. 6. Constipation. 7. Obesity with elevated body mass index. 8. Noninsulin requiring diabetes mellitus. 9. Sinus bradycardia with sinus arrhythmia. 10. Left ventricular ejection fraction of 60%. 11. Mild concentric left ventricular hypertrophy and hypertensive cardiovascular disease. 12. Moderately sclerotic aortic valve with trace aortic regurgitation and mild valvular aortic stenosis. 13. Moderate thickened mitral valve. 14. Moderately sclerae calcific changes of the aortic root. 15. Concentric left ventricular hypertrophy. 16. Mild valvular aortic stenosis. 17. Trace aortic regurgitation. 18. Sinus bradycardia with sinus arrhythmia 19. Hypertension. 20. Granulocytosis. 21. Gait dysfunction. 22. Asymptomatic sinus bradycardia with sinus arrhythmia. 23. Mild prerenal kidney injury. 24. Hypovitaminosis D. 1. 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 2. Status post mechanical fall. 3. Obesity. 4. Hypertension. 5. Obesity. 6. Gait dysfunction. 7. Noninsulin requiring diabetes mellitus. 8. Mild prerenal kidney injury. 9. Gait dysfunction. 10. Asymptomatic sinus bradycardia with sinus arrhythmia. 11. Left distal femur acute nondisplaced vertical fracture. 12. Sinus bradycardia. 13. Hypertension. 14. Hypovitaminosis D. 15. Constipation. 1. Status post mechanical fall. 2. Left distal femur vertically oriented fracture through the distal femur extending into the articular surface lateral femoral condyle and nondisplaced fracture of the left knee with left knee joint effusion and degenerative joint disease of the patella. 3. Gait dysfunction. 4. Degenerative joint disease of the knee. 5. Left suprapatellar joint effusion. 6. Obesity. 7. Hypertension. 8. Marked sinus bradycardia with sinus arrhythmia. 9. Status post fall. 10. Noninsulin requiring type 2 diabetes mellitus. 11. Vitamin B12 deficiency. 12. Gait dysfunction. 13. Hypertension. 14. Hypovitaminosis D. 15. Noninsulin requiring type 2 diabetes mellitus. 1. Status post mechanical fall. 2. Left distal femur vertically oriented fracture through the distal femur extending into the articular surface, lateral femoral condyles and nondisplaced fracture with left knee joint effusion and degenerative joint disease of the patella. 3. Gait dysfunction. 4. Status post mechanical fall. 5. Degenerative joint disease of the knee. 6. Suprapatellar joint effusion. 7. Obesity. 8. Hypertension. 9. Type 2 diabetes mellitus. 10. History of iron deficiency normocytic anemia. 11. Granulocytosis. 12. 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 PLAN: At this time the patient's case is referred to physical therapy, social sciences lecturer, case management for discharge planning. CURRENT MEDICATIONS: 1. Cozaar 100 mg daily. 2. Dilaudid 0.5 mg IV q. 4 hours p.r.n. 3. Drisdol 50,000 weekly. 4. Dulcolax suppository 10 mg ordered. 5. Folic acid 1 mg daily. 6. Heparin 5000 subQ q. 8. 7. Humalog medium dose sliding scale coverage. 8. The patient is started on hydrochlorothiazide 12.[address] Alexandre Montano. 9. MiraLax 17 g twice a day. 10. Protonix 20 mg twice a day. 11. Zofran 4 mg IV q. 4 p.r.n. The patient is on consistent carbohydrate diet. The patient has been ordered out of bed, ERIC stockings, SCDs, occupational therapy, physical therapy, nonweightbearing. The patient seen by social sciences lecturer. The patient seen by TCU nursing. The patient is not accepted to TCU because of insurance issues. The patient seen by physical therapy and recommended subacute rehabilitation. The patient updated about her condition, diagnosis, treatment plan, management plan and discharge options, which she acknowledged and understands. Dictated and electronically signed, not read. Lamont Garcia MD cc: [id number] TT: 08/18/2016 21:56:42 Confirmation # [id number] Dictation # [id number] MTDD
[2016-08-18] MEDS: HYDROmorphone 0.5 mg/0.5 ml ISec IVP PRN (22:02)
--- NOTE | 2016-08-19 05:04 | CP.PCM.PN ---
Subjective - Date & Time of Evaluation Date of Evaluation: 08/19/16 Time of Evaluation: 05:01 - Subjective Subjective: Patient was seen at bedside because she complained of headache, is on left side parietal area, mild, no radiation, gets often, takes tylenol for it which helps , denies head injury history, no eye symptoms , no ear symptoms, no history of sinusitis or tooth ache, no dizziness, nausea, weakness , paraesthesia. Medical record was reviewed. This 76 year old woman is admitted with left knee pain after a mechanical fall was found to have left distal femur fracture. Has PMH of HTN, DM, sinus bradycardia, obesity ,CKD, anemia, vit B12 deficiency , goitre , Vit D deficiency, PNA, rheumatoid arthritis, colitis, gastritis, C - Section x 2. Objective - Vital Signs/Intake and Output Vital Signs (last 24 hours): Temp Pulse Resp BP Pulse Ox 98.2 F 67 20 159/80 H 95 08/18/16 16:00 08/19/16 04:50 08/18/16 16:00 08/19/16 04:50 08/18/16 16:00 Intake and Output: 08/18/16 08/19/16 18:59 06:59 Intake Total 640 760 Balance 640 760 - Medications Medications: Current Medications Ergocalciferol (Drisdol 50,000 Intl Units Cap) [address] [facility] Last Admin: 08/15/16 22:19 Dose: 1 cap Folic Acid (Folic Acid) [address] [facility] Last Admin: 08/18/16 09:35 Dose: 1 mg Heparin Sodium (Porcine) (Heparin) 5,[address] [facility] PRN Reason: Protocol Last Admin: 08/18/16 22:03 Dose: 5,000 units Hydrochlorothiazide (Microzide) 12.[address] [facility] Last Admin: 08/18/16 17:31 Dose: 12.5 mg Hydromorphone HCl (Dilaudid) 0.5 mg IVP Q4H PRN PRN Reason: Pain, moderate (4-7) Last Admin: 08/18/16 22:02 Dose: 0.5 mg Insulin Human Lispro (Humalog Med) [address] [facility] PRN Reason: Protocol Last Admin: 08/18/16 16:35 Dose: Not Given Losartan Potassium (Cozaar) [address] [facility] Last Admin: 08/18/16 09:35 Dose: 100 mg Ondansetron HCl (Zofran Inj) 4 mg IVP Q4H PRN PRN Reason: Nausea/Vomiting Last Admin: 08/18/16 22:03 Dose: 4 mg Pantoprazole Sodium (Protonix Ec Tab) [address] 0730,[address]30 [facility] Last Admin: 08/18/16 17:31 Dose: 20 mg Polyethylene Glycol (Miralax) [address] [facility] Last Admin: 08/18/16 17:31 Dose: 17 gm - Labs Labs: PT 11.1 Seconds (9.9-11.8) 08/15/16 20:45 INR 1.03 (0.93-1.08) 08/15/16 20:45 APTT 29.4 Seconds (23.7-30.8) 08/15/16 20:45 - Constitutional Appears: Well, In Acute Distress - Head Exam Head Exam: ATRAUMATIC, NORMAL INSPECTION, NORMOCEPHALIC - Eye Exam Eye Exam: Normal appearance - ENT Exam ENT Exam: TM's Normal Bilaterally - Neck Exam Neck Exam: Normal Inspection - Respiratory Exam Respiratory Exam: NORMAL BREATHING PATTERN - Cardiovascular Exam Cardiovascular Exam: absent: JVD - GI/Abdominal Exam GI & Abdominal Exam: absent: Distended - Rectal Exam Rectal Exam: Deferred - Extremities Exam Additional comments: Left femur tenderness + - Back Exam Back Exam: NORMAL INSPECTION - Neurological Exam Neurological Exam: Alert, Awake, Oriented x3 - Psychiatric Exam Psychiatric exam: Normal Affect - Skin Skin Exam: Normal Color Assessment and Plan - Assessment and Plan (Free Text) Assessment: Headache. Left femur distal fracture. DM. HTN. CKD Hx. Obesiy. Anemia. Plan: Tylenol 650 mg PO x 1. Continue present medications.
[2016-08-19 07:59] VITALS: O2SAT 97
[2016-08-19] MEDS: Insulin Lispro (humaLOG) MEDIUM Coverage SC SCH ×3 (08:18→16:49)
[2016-08-19] MEDS: Pantoprazole 20 mg EC Tab PO SCH ×2 (08:18→18:47)
--- NOTE | 2016-08-19 09:53 | PN ---
FINAL PROGRESS NOTE AND DISCHARGE SUMMARY DATE: 08/19/2016 The patient is seen today out of bed to chair. The patient is complaining of some difficult urination since IV fluids were stopped. The patient's bladder scan was done right away which shows a bladder urine of 300 mL. The patient refused Dulcolax suppository for constipation yesterday. The patient is out of bed to chair. PHYSICAL EXAMINATION: VITAL SIGNS: T-max 98.3, heart rate 67-81, blood pressure 159/80, 167/85, 175/ 86, respiration 20, O2 sat 97%. HEAD: Normocephalic, atraumatic. HEENT: Shows pinkish, pale conjunctivae. Dry oral mucosa. NECK: No neck rigidity. CHEST: Kyphosis. LUNGS: Show no rales, crackles, or wheezing. CARDIOVASCULAR: Shows S1, S2, regular rhythm. ABDOMEN: Protuberant, positive bowel sounds. GENITALIA: Female. RECTAL: Deferred. EXTREMITIES: Show positive left knee immobilizer. Right lower extremity shows ERIC stockings. MUSCULOSKELETAL: Shows a body mass index of 28. NEUROLOGIC: Cranial nerves II-XII limited because of decreased strength of the left lower extremity. GAIT: Not tested. DIAGNOSTICS: Fingerstick blood sugar 133, 146, 119, 112, 165, 153, 133, 169, 122, 160, 121. FINAL IMPRESSION AND PLAN & DISCHARGE DIAGNOSES: 1. 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 2. Constipation. 3. Status post mechanical fall. 4. Obesity. 5. Hypertension. 6. Questionable mild urinary retention. 7. Hypertension. 8. Gait dysfunction. 9. Obesity. 10. Type 2 non-insulin requiring diabetes mellitus. 11. Hypovitaminosis D. 12. Gait dysfunction. 1. Left distal femur vertically oriented acute fracture to the articular surface with a small suprapatellar effusion and adjacent soft tissue swelling with degenerative joint disease of the left patellar. 2. Constipation. 3. Status post mechanical fall. 4. Obesity. 5. Hypertension. 6. Constipation. 7. Obesity with elevated body mass index. 8. Noninsulin requiring diabetes mellitus. 9. Sinus bradycardia with sinus arrhythmia. 10. Left ventricular ejection fraction of 60%. 11. Mild concentric left ventricular hypertrophy and hypertensive cardiovascular disease. 12. Moderately sclerotic aortic valve with trace aortic regurgitation and mild valvular aortic stenosis. 13. Moderate thickened mitral valve. 14. Moderately sclerae calcific changes of the aortic root. 15. Concentric left ventricular hypertrophy. 16. Mild valvular aortic stenosis. 17. Trace aortic regurgitation. 18. Sinus bradycardia with sinus arrhythmia 19. Hypertension. 20. Granulocytosis. 21. Gait dysfunction. 22. Asymptomatic sinus bradycardia with sinus arrhythmia. 23. Mild prerenal kidney injury. 24. Hypovitaminosis D. 1. 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 2. Status post mechanical fall. 3. Obesity. 4. Hypertension. 5. Obesity. 6. Gait dysfunction. 7. Noninsulin requiring diabetes mellitus. 8. Mild prerenal kidney injury. 9. Gait dysfunction. 10. Asymptomatic sinus bradycardia with sinus arrhythmia. 11. Left distal femur acute nondisplaced vertical fracture. 12. Sinus bradycardia. 13. Hypertension. 14. Hypovitaminosis D. 15. Constipation. 1. Status post mechanical fall. 2. Left distal femur vertically oriented fracture through the distal femur extending into the articular surface lateral femoral condyle and nondisplaced fracture of the left knee with left knee joint effusion and degenerative joint disease of the patella. 3. Gait dysfunction. 4. Degenerative joint disease of the knee. 5. Left suprapatellar joint effusion. 6. Obesity. 7. Hypertension. 8. Marked sinus bradycardia with sinus arrhythmia. 9. Status post fall. 10. Noninsulin requiring type 2 diabetes mellitus. 11. Vitamin B12 deficiency. 12. Gait dysfunction. 13. Hypertension. 14. Hypovitaminosis D. 15. Noninsulin requiring type 2 diabetes mellitus. 1. Status post mechanical fall. 2. Left distal femur vertically oriented fracture through the distal femur extending into the articular surface, lateral femoral condyles and nondisplaced fracture with left knee joint effusion and degenerative joint disease of the patella. 3. Gait dysfunction. 4. Status post mechanical fall. 5. Degenerative joint disease of the knee. 6. Suprapatellar joint effusion. 7. Obesity. 8. Hypertension. 9. Type 2 diabetes mellitus. 10. History of iron deficiency normocytic anemia. 11. Granulocytosis. 12. 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 The patient seen by the physical therapist. The recommendation from physical therapist is discharge disposition by physical therapist is subacute rehab. The patient seen by case management. The patient not eligible for transitional care unit. At this time, we are awaiting for the patient's discharge disposition. The patient's orthopedics' recommendations were reinforced to the patient again. CURRENT DISCHARGE MEDICATIONS: 1. Cozaar 100 mg daily. 2. Dilaudid 0.5 mg IV q. 4 p.r.n. 3. Vitamin D 50,000 units weekly. 4. Folic acid 1 mg daily. 5. Heparin 5000 subQ q. 8. 6. Humalog medium dose sliding scale coverage a.c. 7. Hydrochlorothiazide 12.5 mg daily. 8. MiraLax 17 g twice a day. 9. Protonix 20 mg twice a day. 10. Tylenol 650 q. 6 p.r.n. 11. Zofran 4 mg IV q. 4 p.r.n. Consistent carbohydrate diet. Out of bed to chair, ERIC stockings, SCDs, occupational therapy, physical therapy noted. At this time, patient is to be continued on above therapeutic intervention. The patient is medically stable for discharge to subacute versus acute rehab, whichever the patient's insurance approves. The patient has been updated about the treatment plan and discharge plan. PATIENT ACCEPTED TO [facility],FOR DISCHARGE TODAY TO [facility]. Dictated and electronically signed, not read. Lamont Garcia MD cc: [id number] TT: 08/19/2016 09:53:04 Confirmation # [id number] Dictation # [id number] blane BOONE
[2016-08-19] MEDS: POLYETHYLENE GLYCOL 3350 17 GM/Dose PACKET PO SCH ×2 (09:58→18:47)
--- NOTE | 2016-08-19 13:15 | PN ---
DATE: 08/19/2016 The patient is in a chair, asymptomatic. PHYSICAL EXAMINATION: VITAL SIGNS: Blood pressure is 159/80, the heart rate is in the 60s. NECK: Negative JVD. LUNGS: Without rales. HEART: Reveals S1, S2. EXTREMITIES: Without edema. LABORATORIES: Revealed a glucose of 121. IMPRESSION: 1. Status post left knee fracture. 2. Status post fall. 3. Hypertension. 4. History of sinus bradycardia, which has no hemodynamic sequelae. PLAN: Given these findings, the patient is being transferred to subacute rehab. Alexandre Montano MD cc: [id number] TT: 08/19/2016 13:15:16 Confirmation # [id number] Dictation # [id number] sn
[2016-08-19 19:20] VITALS: BP 78/77; PULSE 76; TEMP 97.8
[2016-08-22] MEDS ORDERED: Non Formulary Medication (Cholecalciferol (Vitamin D3) [Vitamin D3] 50,000 UNIT) PO SCH (10:00)
== END 2016-08-20 00:22 | DRG 534 ==
LOC: ED 12:28 → ERH 22:17 → 5RSO 23:57
PROVIDERS: ADMIT Internal Medicine; ATTEND Internal Medicine
DX: S72.402A Unspecified fracture of lower end of left femur, initial encounter for closed fracture (principal); E11.22 Type 2 diabetes mellitus with diabetic chronic kidney disease; I12.9 Hypertensive chronic kidney disease with stage 1 through stage 4 chronic kidney disease, or unspecified chronic kidney disease; D50.9 Iron deficiency anemia, unspecified; E53.8 Deficiency of other specified B group vitamins; E55.9 Vitamin D deficiency, unspecified; E78.5 Hyperlipidemia, unspecified; M17.9 Osteoarthritis of knee, unspecified; N18.9 Chronic kidney disease, unspecified; M81.0 Age-related osteoporosis without current pathological fracture; R00.1 Bradycardia, unspecified; M25.462 Effusion, left knee; R26.89 Other abnormalities of gait and mobility; E04.9 Nontoxic goiter, unspecified; M06.9 Rheumatoid arthritis, unspecified; E66.9 Obesity, unspecified; K59.00 Constipation, unspecified; I35.1 Nonrheumatic aortic (valve) insufficiency; K57.90 Diverticulosis of intestine, part unspecified, without perforation or abscess without bleeding; W01.0XXA Fall on same level from slipping, tripping and stumbling without subsequent striking against object, initial encounter; Y93.01 Activity, walking, marching and hiking; Y92.480 Sidewalk as the place of occurrence of the external cause; Y99.8 Other external cause status; Z68.28 Body mass index [BMI] 28.0-28.9, adult; Z79.84 Long term (current) use of oral hypoglycemic drugs

== ENCOUNTER 2017-05-05 08:30 | Emergency (ER) | payer OTHER ==
[2017-05-05 08:30] VITALS: BMI 28.1
--- NOTE | 2017-05-05 08:51 | ED PDOC ---
Arrival/HPI - General Chief Complaint: GI Problem Time Seen by Provider: 05/05/17 08:39 Historian: Patient, Family - History of Present Illness Narrative History of Present Illness (Text): 05/05/17 08:50 pt p/w + 4 days onset of URI/flu like symptoms: + congestion/runny nose, + coughing with intermittent white sputum production (non-bloody), slight bodyaches, mild weakness/fatigue; decr appetite; + SICK CONTACT (some family members with FLU); no fever, ? chills/sweats at times, no cp/sob, no abd pain, no n/v, no numbness/tingling, no urinary changes, no fall/trauma/travel, + sick contact, no loc, no dizziness; pt states + diarrhea since yesterday x 6 episodes ; no rashes; pt denied other complaints; pt is here for further eval. Time/Duration: < week (4 days of URI/flu like symptoms) Symptom Onset: Gradual Symptom Course: Unchanged Activities at Onset: Rest Context: Home Past Medical History - Provider Review Nursing Documentation Reviewed: Yes - Travel History Have you recently traveled outside [place] w/in the past 3 mons?: No - Past History Past History: No Previous - Infectious Disease Hx of Infectious Diseases: None - Tetanus Immunization Tetanus Immunization: Unknown - Cardiac Hx Cardiac Disorders: Yes Hx Hypertension: Yes (uncontrolled) - Pulmonary Hx Respiratory Disorders: Yes Hx Pneumonia: Yes - Neurological Hx Neurological Disorder: No Hx Paralysis: No - HEENT Hx HEENT Disorder: (WEARS RX GLASSES) - Renal Hx Renal Disorder: No - Endocrine/Metabolic Hx Diabetes Mellitus Type 2: Yes - Hematological/Oncological Hx Blood Disorders: Yes (VIT D DEFICIENCY) Hx Anemia: Yes Hx Blood Transfusions: No Hx Blood Transfusion Reaction: No - Musculoskeletal/Rheumatological Hx Arthritis: Yes (RHEUMATOID) - Gastrointestinal Hx Gastrointestinal Disorders: Yes Hx Colitis: Yes Hx Diverticulitis: (diverticulosis) Hx Gastritis: Yes Hx Gastroesophageal Reflux: Yes - Genitourinary/Gynecological Hx Genitourinary Disorders: No (2 C SECTIONS) - Psychiatric Hx Depression: No Hx Emotional Abuse: No Hx Physical Abuse: No Hx Substance Use: No - Surgical History Hx Section: Yes (x2) - Anesthesia Hx Anesthesia: Yes Hx Anesthesia Reactions: No Hx Malignant Hyperthermia: No - Suicidal Assessment Feels Threatened In Home Enviroment: No Family/Social History - Physician Review Nursing Documentation Reviewed: Yes Family/Social History: No Known Family HX Smoking Status: Never Smoked Hx Alcohol Use: No Hx Substance Use: No Hx Substance Use Treatment: No Allergies/Home Meds Allergies/Adverse Reactions: Allergies No Known Allergies Allergy (Verified 05/05/17 08:41) Home Medications: Home Meds Medication Instructions Recorded Confirmed Cholecalciferol (Vitamin D3) 50,000 unit PO MON 08/15/16 05/05/17 [Vitamin D3] Folic Acid 1 mg PO DAILY 08/15/16 05/05/17 Review of Systems - Review of Systems Constitutional: Fatigue, Night Sweats. absent: Fevers Eyes: Normal ENT: Normal Respiratory: Cough, Sputum. absent: SOB, Wheezing Cardiovascular: Normal. absent: Chest Pain Gastrointestinal: Diarrhea. absent: Abdominal Pain, Nausea, Vomiting Genitourinary Female: Normal Musculoskeletal: Normal Skin: Normal Neurological: Normal Endocrine: Normal Hemo/Lymphatic: Normal Psychiatric: Normal Physical Exam Vital Signs Reviewed: Yes Vital Signs Temp Pulse Resp BP Pulse Ox 05/05/17 08:43 97.5 F L 67 19 156/64 H 99 Temperature: Afebrile Blood Pressure: Hypertensive Pulse: Regular Respiratory Rate: Normal Appearance: Positive for: Well-Appearing, Non-Toxic, Other (sitting on exam bed , NAD, comfortable, alert/awake, GCS = 15, oriented x 3, cooperative, follows command with ease) Pain Distress: None Mental Status: Positive for: Alert and Oriented X 3 - Systems Exam Head: Present: Atraumatic, Normocephalic Pupils: Present: PERRL Extroacular Muscles: Present: EOMI Conjunctiva: Present: Normal Ears: Present: Normal Mouth: Present: Moist Mucous Membranes, Other (no drooling/stridor, no exudate/ lesions, no dysphonia) Pharnyx: Present: Normal Nose (External): Present: Atraumatic Nose (Internal): Present: Normal Inspection Neck: Present: Normal Range of Motion, Trachea Midline, Other (no meningeal signs, no midline tenderness, no nuchal rigidity, no step off). No: MIDLINE TENDERNESS Respiratory/Chest: Present: Good Air Exchange, Other (+ slight decr BS to left lower lobe, + mild left sided rhonchi; no wheezing/rales; no tachypenia, no accessory muscle use ntoed, no belly retraction). No: Respiratory Distress, Accessory Muscle Use Cardiovascular: Present: Regular Rate and Rhythm, Normal S1, S2. No: Murmurs Abdomen: Present: Normal Bowel Sounds, Other (well nourished/slight obese female , no focal tenderness, no leon's sign, no mcburney's point tenderness, no masses/rebound/guarding/rigidity) Back: Present: Normal Inspection. No: Midline Tenderness Upper Extremity: Present: Normal Inspection, Normal ROM, NORMAL PULSES, Neurovascularly Intact, Capillary Refill < 2s Lower Extremity: Present: Normal Inspection, NORMAL PULSES, Normal ROM, Neurovascularly Intact, Capillary Refill < 2 s. No: Ramiro's Sign Neurological: Present: GCS=15, CN II-XII Intact, Speech Normal Skin: Present: Warm, Normal Color, Other (cap refill < 1sec, no ulcerations, no petechiae) Psychiatric: Present: Alert, Oriented x 3 Medical Decision Making ED Course and Treatment: 05/05/17 08:54 Impression: URI/flu like sx; r/o pna; diarrhea i have consider all the differential diagnosis regarding pt's chief medical complaints/clinical findings, including but are not limited to: URI/flu like sx , r/o pna A/P: URI/flu like symptoms, r/o pna - xray - iv - labs - ua - observe - supportive care 05/05/17 11:30 pt is doing well pt is comfortable pt's vital signs are WNL pt is made aware of her medical results pt is encouraged fluids pt is instructed on proper hygiene pt will f/u as directed pt will be discharged home Dr Radha crespo, made aware, agrees with ED mgt/txt, and will f/u with patient as outpt given pt's length of symptoms without fever, i do not see a benefit with prescribing tamiflu as she is out of the window for treatment pt is aware and is in agreement with my recommendation pt is encouraged continued supportive care 05/05/17 11:34 Re-evaluation Time: 11:30 Reassessment Condition: Improved - Lab Interpretations Lab Results: 05/05/17 09:10 05/05/17 09:10 Lab Results 05/05/17 11:10: Urine Color Light yellow, Urine Appearance Clear, Urine pH 5.5, Ur Specific [place] 1.010, Urine Protein Negative, Urine Glucose (UA) Negative, Urine Ketones Negative, Urine Blood Negative, Urine Nitrate Negative, Urine Bilirubin Negative, Urine Urobilinogen 0.2, Ur Leukocyte Esterase Small H, Urine RBC Pending, Urine WBC Pending 05/05/17 09:10: Influenza Typ A,B (EIA) Pos for influenza b H 05/05/17 09:10: Sodium 138, Chloride 104, Potassium 5.5 H, Carbon Dioxide 20 L, Anion Gap 20, BUN 27 H, Creatinine 1.1, Est GFR ( Amer) 59, Est GFR (Non- Af Amer) 48, Random Glucose 129 H, Calcium 9.4, Total Bilirubin 0.5, AST 47 H, ALT 43, Alkaline Phosphatase 75, NT-Pro-B Natriuret Pep 145, Total Protein 7.7, Albumin 4.3, Globulin 3.5, Albumin/Globulin Ratio 1.2 05/05/17 09:10: pO2 121 H, VBG pH 7.33, VBG pCO2 45.0, VBG HCO3 23.7, VBG Total CO2 25.1, VBG O2 Sat (Calc) 98.3 H, VBG Base Excess -2.4 L, VBG Potassium 5.5 H , Sodium 134.0, Chloride 104.0, Glucose 133 H, Lactate 1.0, FiO2 21.0, Venous Blood Potassium 5.5 H 05/05/17 09:10: WBC 4.8 D, RBC 4.61, Hgb 11.7 L, Hct 37.2, MCV 80.7, MCH 25.4, MCHC 31.5, RDW 15.5 H, Plt Count 143, MPV 10.6, Gran % 67.3, Lymph % (Auto) 23.7 , [place] % (Auto) 7.1 H, Eos % (Auto) 1.7, Baso % (Auto) 0.2, Gran # 3.20, Lymph # (Auto) 1.1 L, [place] # (Auto) 0.3, Eos # (Auto) 0.1, Baso # (Auto) 0.01 I have reviewed the lab results: Yes Interpretation: Abnormal lab values (slightly above normal K) - RAD Interpretation Narrative RAD Interpretations (Text): 05/05/17 11:33 HISTORY: sob, coughing, URI like sx; decr bs left sided COMPARISON: 08/15/2016 TECHNIQUE: Chest PA and lateral FINDINGS: LUNGS: No active pulmonary disease. PLEURA: No significant pleural effusion identified. No pneumothorax apparent. CARDIOVASCULAR: Normal. OSSEOUS STRUCTURES: No significant abnormalities. VISUALIZED UPPER ABDOMEN: Normal. OTHER FINDINGS: None. IMPRESSION: No active disease. Radiology Orders: 05/05/17 08:51 CHEST TWO VIEWS (PA/LAT) [RAD] Stat Finance Effectiveness Manager: Radiologist - Medication Orders Current Medication Orders: Discontinued Medications Albuterol/Ipratropium (Duoneb 3 Mg/0.5 Mg (3 Ml) Ud) 3 ml IH STAT STA Stop: 05/05/17 08:53 Last Admin: 05/05/17 09:12 Dose: 3 ml Lidocaine HCl (Xylocaine 2% (Uro-Jet)) 1 ea TOP ONCE ONE Stop: 05/05/17 08:53 Last Admin: 05/05/17 09:12 Dose: 1 ml Disposition/Present on Arrival - Present on Arrival Any Indicators Present on Arrival: No History of DVT/PE: No History of Uncontrolled Diabetes: No Urinary Catheter: No History of Decub. Ulcer: No History Surgical Site Infection Following: None - Disposition Have Diagnosis and Disposition been Completed?: Yes Diagnosis: Influenza, Cough, Weakness, Diarrhea Disposition: HOME/ ROUTINE Disposition Time: 11:27 Patient Plan: Discharge Patient Problems: Current Active Problems Problem Status Onset Cough Acute Influenza Acute Weakness Acute Condition: STABLE Discharge Instructions (ExitCare): Weakness (ED), Flu, Cough in Adults Print Language: LATVIAN Additional Instructions: Make sure to see your doctor in 1-2 days DRINK PLENTY OF FLUIDS take your medications as prescribed pt is instructed to practice proper hygiene, to avoid spreading the Flu RETURN TO ED IF worse pain, cant breath, persistent vomiting, high fever >101- 102 for hours, altered behavior, unable to urinate, heavy/persistent bleeding, passing out, chest pain, or other medical emergencies Prescriptions: guaiFENesin/Dextromethorphan [guaiFENesin-DM] 10 ml PO TID PRN #100 ml PRN Reason: Cough Referrals: Lamont Garcia MD [Primary Care Provider] - Follow up with primary Forms: OVIA (Armenian)
[2017-05-05] MEDS ORDERED: Albuterol-Ipratrop 3 mg / 0.5 (3 ml) UD IH STA (08:52)
[2017-05-05] MEDS ORDERED: Lidocaine 2% Jelly (Uro-Jet) TOP ONE (08:52)
[2017-05-05 09:27] LABS: VENOUS BLOOD GAS BASE EXCESS -2.4 mmol/L (0.0-2.0); VENOUS BLOOD GAS PO2 121 mm/Hg (30-55); VENOUS BLOOD PH 7.33 (7.32-7.43)
[2017-05-05 09:28] LABS: BASO # 0.01 K/mm3 (0.0-2.0); BASO % 0.2 % (0.0-3.0); EOS # 0.1 (0.0-0.7); EOS % 1.7 % (1.5-5.0); GRAN # 3.2 (1.4-6.5); GRAN % 67.3 % (50.0-68.0); HEMOGLOBIN 11.7 g/dL (12.0-16.0); LYMPH # 1.1 (1.2-3.4); LYMPH % 23.7 % (22.0-35.0); MEAN CELL VOLUME 80.7 fl (80.0-105.0); MEAN CORPUSCULAR HEMOGLOBIN 25.4 pg (25.0-35.0); MEAN CORPUSCULAR HGB CONC 31.5 g/dl (31.0-37.0); MEAN PLATELET VOLUME 10.6 fl (7.0-11.0); MONO # 0.3 (0.1-0.6); MONO % 7.1 % (1.0-6.0); RBC 4.61 10^6/uL (3.5-6.1); RED CELL DISTRIBUTION WIDTH 15.5 % (11.5-14.5); WHITE BLOOD COUNT 4.8 10^3/ul (4.5-11.0)
[2017-05-05 09:49] LABS: ALB/GLOB RATIO 1.2 (1.1-1.8); ALBUMIN 4.3 g/dL (3.0-4.8); CALCIUM 9.4 mg/dL (8.4-10.5)
--- NOTE | 2017-05-05 11:08 | RAD ---
HISTORY: sob, coughing, URI like sx; decr bs left sided COMPARISON: 08/15/2016 TECHNIQUE: Chest PA and lateral FINDINGS: LUNGS: No active pulmonary disease. PLEURA: No significant pleural effusion identified. No pneumothorax apparent. CARDIOVASCULAR: Normal. OSSEOUS STRUCTURES: No significant abnormalities. VISUALIZED UPPER ABDOMEN: Normal. OTHER FINDINGS: None. IMPRESSION: No active disease.
[2017-05-05 11:14] LABS: PH,URINE 5.5 (4.7-8.0); URINE BILIRUBIN NEGATIVE (NEGATIVE); URINE BLOOD NEGATIVE (NEGATIVE); URINE GLUCOSE (UA) NEGATIVE (NEGATIVE); URINE LEUKOCYTE ESTERASE SMALL Leu/uL (NEGATIVE); URINE NITRATE NEGATIVE (NEGATIVE); URINE PROTEIN NEGATIVE mg/dL (<30 mg/dL); URINE UROBILINOGEN 0.2 E.U./dL (<1 E.U./dL)
[2017-05-05 11:15] LABS: URINE APPEARANCE CLEAR (CLEAR); URINE COLOR LIGHT YELLOW (YELLOW)
[2017-05-05 11:44] VITALS: BP 132/72; PULSE 75; RESP 18; TEMP 97.7; O2SAT 51
[2017-05-05 12:27] LABS: URINE RBC 0 - 2 /hpf (0-2)
[2017-05-05 12:28] LABS: URINE AMORPHOUS SEDIMENT FEW; URINE BACTERIA MANY (NEG)
== END 2017-05-05 11:49 | disposition home or self-care (01) ==
LOC: ED 08:30
DX: J11.1 Influenza due to unidentified influenza virus with other respiratory manifestations (principal); R19.7 Diarrhea, unspecified; R53.1 Weakness; I10 Essential (primary) hypertension; D64.9 Anemia, unspecified; Z87.01 Personal history of pneumonia (recurrent)